=== PATIENT | male | born 1975 | race Caucasian/White ===

== ENCOUNTER → 2018-09-10 | Outpatient (CLI) | payer BC ==
[~2018-09-10] MED LIST: CARISOPRODOL 3350 MG PO; FLEXERIL PO; IBUPROFEN 800800 M1 PO; NAPROSYN500 MG PO; ZOFRAN ODT4 MG PO
== END ==
LOC: M.RAD 13:00
DX: R06.02 Shortness of breath (principal)

== ENCOUNTER → 2018-09-13 | Outpatient (CLI) | payer BC | LOC: M.ULTRA 08:55 | DX: R22.2 Localized swelling, mass and lump, trunk (principal); R07.9 Chest pain, unspecified ==